=== PATIENT | female | born 1945 | race Caucasian/White ===

== ENCOUNTER 2016-10-31 13:30 | Emergency (ER) | payer MEDICARE ==
[2016-10-31 13:39] VITALS: BP 118/82; PULSE 101; O2SAT 97
--- NOTE | 2016-10-31 13:53 | ERPHSYRPT ---
- History of Present Illness Time Seen by Provider: 10/31/16 13:49 Source: patient Exam Limitations: no limitations Patient Subjective Stated Complaint: pt reports that deb 30 min ago she saw a "ribbon" for deb 30 sec-states she can see spots out of left eye-denies pain Triage Nursing Assessment: pt pink warm et dry-pupils perrl-a & o x 3-no obvious injury to eye Physician History: pt reports that deb 30 min ago she saw a "ribbon" for deb 30 sec-states she can see spots out of left eye-denies pain. Denies any curtain like object passing in front of her eyes Timing/Duration: today Associated Symptoms: other (curly ribbon like floaters in front of her left eye) , No pain, No burning, No itching, No sensitivity to light, No redness, No matting, No eyelid swelling, No foreign body sensation, No decreased vision Allergies/Adverse Reactions: metoclopramide [From Reglan] Allergy (Intermediate, Verified 10/31/16 13:39) penicillin G Allergy (Intermediate, Verified 10/31/16 13:39) erythromycin base Adverse Reaction (Mild, Verified 10/31/16 13:39) Home Medications: Dicyclomine HCl 20 mg [Bentyl 20 mg] 20 mg PO BID 10/31/16 [History] Levothyroxine Sodium 75 Mcg [Synthroid 75 Mcg] 75 mcg PO DAILY 10/31/16 [ History] Montelukast Sodium [Singulair] 10 mg PO DAILY 10/31/16 [History] Potassium Chloride 10 Meq Tab* [Klor Con 10 MEQ] 10 meq PO DAILY 10/31/16 [ History] Valsartan [Diovan] 40 mg PO DAILY 10/31/16 [History] Hx Tetanus, Diphtheria Vaccination/Date Given: No Hx Influenza Vaccination/Date Given: Yes Hx Pneumococcal Vaccination/Date Given: Yes Immunizations Up to Date: No - Review of Systems Constitutional: No Symptoms Eyes: Other (floaters) Ears, Nose, & Throat: No Symptoms Respiratory: No Symptoms Cardiac: No Symptoms Abdominal/Gastrointestinal: No Symptoms Genitourinary Symptoms: No Symptoms Musculoskeletal: No Symptoms Skin: No Symptoms - Past Medical History Pertinent Past Medical History: Yes ENT History: Cataracts Cardiac History: Hypertension Respiratory History: Asthma Endocrine Medical History: Hypothyroidism - Past Surgical History Past Surgical History: Yes Gastrointestinal: Appendectomy, Cholecystectomy Female Surgical History: Hysterectomy - Social History Smoking Status: Never smoker Exposure to second hand smoke: No Drug Use: none Patient Lives Alone: No - Nursing Vital Signs Nursing Vital Signs: Initial Vital Signs Temperature 97.6 F Temperature Source Oral Pulse Rate 101 Respiratory Rate 22 Blood Pressure [Right Arm] 118/82 Pain Intensity 0 - Physical Exam General Appearance: no apparent distress Vision Acuity Degree Evaluation Phase: Corrected Vision Acuity Right Eye: 20/20 Eye Exam: bilateral eye: normal inspection, PERRL, EOMI Ears, Nose, Throat Exam: normal ENT inspection SpO2: 97 Oxygen Delivery: Room Air - Course Nursing assessment & vital signs reviewed: Yes - Progress Progress: improved Counseled pt/family regarding: diagnosis, need for follow-up - Departure Time of Disposition: 13:51 Departure Disposition: Home Clinical Impression: Floaters in visual field Qualifiers: Laterality: left Qualified Code(s): H43.392 - Other vitreous opacities, left eye Condition: Stable Critical Care Time: No Instructions: Eye Floaters Additional Instructions: Please follow the instructions given to you. Please take your medication as prescribed if given. If symptoms recur or get worse, come back to the emergency room if you cannot reach your primary care physician, or call your primary care physician for an appointment. Again if your symptoms get worse, come back to the emergency room. Thanks for visiting emergency room, and let us take care of you.
== END 2016-10-31 14:01 | disposition home or self-care (01) ==
LOC: ED 13:30
DX: H43.392 Other vitreous opacities, left eye (principal)
CPT/HCPCS: 99281; 99282

== ENCOUNTER 2018-02-05 11:15 | Emergency (ER) | payer MEDICARE ==
[2018-02-05 11:22] VITALS: O2SAT 96
[2018-02-05] MEDS ORDERED: Adacel Vial IM ONE ×2 (11:30→11:36)
[2018-02-05] MEDS ORDERED: BACIGUENT PACKET ONE (11:36)
[2018-02-05] MEDS ORDERED: BACIGUENT PACKET TP ONE (11:38)
[2018-02-05 11:45] VITALS: BP 138/84; PULSE 80
--- NOTE | 2018-02-05 11:45 | ERPHSYRPT ---
- History of Present Illness Time Seen by Provider: 02/05/18 11:35 Source: patient Exam Limitations: clinical condition Patient Subjective Stated Complaint: pt reports being bitten by a tick on left upper thigh-reports area red Triage Nursing Assessment: pt pink warm and [id number] area noted to upper thigh with no bleeding or abrasions noted Physician History: PATIENT WITH A HISTORY OF HYPERTENSION PULLED A TICK PARTIALLY EMBEDDED IN BACK OF LEFT MID THIGH THIS MORNING. NOTICED SLIGHT REDNESS AROUND SITE, DENIES FEVER, ITCHING OR DRAINAGE. Method of Injury: other (INSECT BITE) Occurred: just prior to arrival Quality: other (NO DISCOMFORT) Severity of Pain-Max: none Severity of Pain-Current: none Lower Extremities Pain: thigh: left Modifying Factors: Improves With: nothing Associated Symptoms: none Allergies/Adverse Reactions: metoclopramide [From Reglan] Allergy (Intermediate, Verified 02/05/18 11:22) penicillin G Allergy (Intermediate, Verified 02/05/18 11:22) erythromycin base Adverse Reaction (Mild, Verified 02/05/18 11:22) Home Medications: Levothyroxine Sodium 75 Mcg [Synthroid 75 Mcg] 75 mcg PO DAILY 10/31/16 [ History] Montelukast Sodium [Singulair] 10 mg PO DAILY 10/31/16 [History] Potassium Chloride 10 Meq Tab* [Klor Con 10 MEQ] 10 meq PO DAILY 10/31/16 [ History] Valsartan [Diovan] 40 mg PO DAILY 10/31/16 [History] Hx Tetanus, Diphtheria Vaccination/Date Given: No Hx Influenza Vaccination/Date Given: Yes Hx Pneumococcal Vaccination/Date Given: Yes Immunizations Up to Date: Yes - Review of Systems Constitutional: No Fever, No Chills Eyes: No Symptoms Ears, Nose, & Throat: No Symptoms Respiratory: No Cough, No Dyspnea Cardiac: No Chest Pain, No Edema, No Syncope Abdominal/Gastrointestinal: No Abdominal Pain, No Nausea, No Vomiting, No Diarrhea Genitourinary Symptoms: No Dysuria Musculoskeletal: Other (INSECT BITE), No Back Pain, No Neck Pain Skin: No Rash Neurological: No Dizziness, No Focal Weakness, No Sensory Changes Psychological: No Symptoms Endocrine: No Symptoms All Other Systems: Reviewed and Negative - Past Medical History Pertinent Past Medical History: Yes ENT History: Cataracts Cardiac History: Hypertension Respiratory History: Asthma Endocrine Medical History: Hypothyroidism - Past Surgical History Past Surgical History: Yes Gastrointestinal: Appendectomy, Cholecystectomy Female Surgical History: Hysterectomy - Social History Smoking Status: Never smoker Exposure to second hand smoke: No Drug Use: none Patient Lives Alone: No - Female History Hx Now: No - Nursing Vital Signs Nursing Vital Signs: Initial Vital Signs Temperature 97.4 F 02/05/18 11:19 Pulse Rate 81 02/05/18 11:19 Respiratory Rate 18 02/05/18 11:19 Blood Pressure 150/77 02/05/18 11:19 O2 Sat by Pulse Oximetry 96 02/05/18 11:19 Pain Scale Pain Intensity 0 - Physical Exam General Appearance: alert Legs Exam: left leg: other (THERE IS A 3MM X 3MM SUPERFICIAL ABRASION OVER LEFT MID POSTERIOR THIGH WITH A 1.5CM SURROUNDING ERYTHRMA, NO DRAINAGE NOTED), bilateral leg: non-tender, normal range of motion SpO2: 96 Oxygen Delivery: Room Air Ordered Tests: Active Orders 24 hr Category Date Time Status Wound Care STAT Care 02/05/18 11:30 Active Medication Summary Discontinued Medications Generic Name Dose Route Start Last Admin Trade Name Freq PRN Reason Stop Dose Admin Bacitracin 0.9 gm 02/05/18 11:38 Baciguent Packet TP 02/05/18 11:39 STAT ONE Bacitracin Confirm 02/05/18 11:36 Baciguent Packet Administered 02/05/18 11:37 Dose 1 gm .ROUTE .STK-MED ONE Diphtheria/Tetanus/Acell Pertussis 0.5 ml 02/05/18 11:30 Adacel Vial IM 02/05/18 11:31 .ONCE ONE Diphtheria/Tetanus/Acell Pertussis Confirm 02/05/18 11:36 Adacel Vial Administered 02/05/18 11:37 Dose 0.5 ml IM .STK-MED ONE - Progress Progress Note: 02/05/18 11:48 HIBICLENS SCRUB TO WOUND Counseled pt/family regarding: diagnosis, need for follow-up - Departure Time of Disposition: 12:00 Departure Disposition: Home Clinical Impression: TICK BITE LEFT THIGH Condition: Stable Critical Care Time: No Referrals: SIL COLVIN [Primary Care Provider] - Additional Instructions: CLEANSE WOUND WITH SOAP AND WATER 2-3 TIMES DAILY FOR 1 WEEK. ANTIBIOTIC OMNICEF 300MG TWICE DAILY FOR 2 WEEKS. FOLLOWUP WITH YOUR PRIMARY CARE PROVIDER FOR LYME TITER IN 4 WEEKS. WATCH FOR SIGNS OF INFECTION REDNESS, SWELLING OR DRAINAGE. Prescriptions: Cefdinir [Omnicef 300 mg] 300 mg PO BID #28 capsule
== END 2018-02-05 12:03 | disposition home or self-care (01) ==
LOC: ED 11:15
DX: S70.362A Insect bite (nonvenomous), left thigh, initial encounter (principal); W57.XXXA Bitten or stung by nonvenomous insect and other nonvenomous arthropods, initial encounter
CPT/HCPCS: 90471; 90715; 99284; A9270-GY

== ENCOUNTER 2021-12-23 11:25 | Observation (INO) | payer MEDICARE ==
--- NOTE | 2021-12-23 12:30 | XRAY ---
Indication: Right neck pain. Comparison: August 07, 2018. Portable chest remains clear. Heart not enlarged for AP portable technique. Bony thorax intact again with mild osteopenia and degenerative changes. No new/acute findings.
[2021-12-23 12:32] LABS: Absolute Neutrophil Ct (ANC) 4.14 (1.4-6.9); Basophil (Absolute #) 0.02 (0-0.4); Eosinophil % 2.8 % (0.00-5.0); Hematocrit 45.4 % (35-47); Hemoglobin 14.6 gm/dl (12.0-16.0); Lymphocyte (Absolute #) 2.11 (1.0-4.6); Lymphocytes % 29.5 % (24.0-44.0); Mean Cell Volume 89.9 fl (78-100); Mean Corpuscular Hemoglobin 28.9 pg (26-32); Mean Corpuscular Hgb Concent. 32.2 g/dl (32-36); Mean Platelet Volume 11.1 fl (7.5-11.0); Monocyte (Absolute #) 0.69 (0.0-1.3); Monocytes % 9.6 % (0.0-12.0); Neutrophil % 57.8 % (36.0-66.0); Platelet Count 252 K/mm3 (150-450); Red Blood Count 5.05 M/mm3 (4.1-5.4); Red Cell Distribution Width 14.4 % (11.5-14.0); White Blood Count 7.2 K/mm3 (4.0-10.5)
[2021-12-23 12:44] LABS: INR 1.04 (0.8-3.0); PROTIME 12.3 SECONDS (9.4-12.5)
[2021-12-23 12:46] LABS: PTT 39.4 SECONDS (25.1-36.5)
[2021-12-23 12:49] LABS: ALBUMIN 3.8 g/dL (3.5-5.0); ALKALINE PHOSPHATASE 76 U/L (38-126); ANION GAP 13.5 MEQ/L (5-15); BLOOD UREA NITROGEN 11 mg/dL (7-17); CHLORIDE 108 mmol/L (98-107); Calcium 9.7 mg/dL (8.4-10.2); Carbon Dioxide 22 mmol/L (22-30); Creatinine 1 0.61 mg/dL (0.52-1.04); EST GLOMERULAR FILTRATION RATE > 60.0 ML/MIN; Glucose 82 mg/dL (74-106); Potassium 4.5 mmol/L (3.5-5.1); SGOT/AST 22 U/L (14-36); SGPT/ALT 13 U/L (0-35); SODIUM 139 mmol/L (137-145); Total Protein 6.3 g/dL (6.3-8.2)
[2021-12-23 13:05] LABS: NT PRO BNP 158 pg/mL (0-1800)
--- NOTE | 2021-12-23 14:06 | ERPHSYRPT ---
- History of Present Illness Time Seen by Provider: 12/23/21 11:40 Historian: patient Exam Limitations: no limitations Patient Subjective Stated Complaint: Patient was in the hospital's RT department to receive a 48 hour holter monitor when she began c/o "chest pain." RT brought patient to ED and patient stated that she didn't have chest pain but that she had right shoulder pain. When patient was brought back to ED, she denied chest pain or right shoulder pain. Patient c/o "heart palpitation" to triage nurse. Patient states that she does not have a frog catcher. She was at the hospital per her primary care givers orders for the holter monitor due to Covid Pneumonia in September 2021 and the c/o heart palpitations for the past week. Triage Nursing Assessment: Patient arrived to ED ambulating per self with a steady gait. No SOB noted. Sating well on room air. She is alert and oriented and answering questions appropriately. Patient is very talkative. Able to HEMPHILL WNL. Physician History: 76 years old female with history of hypothyroidism, hypertension, intermittent palpitations for quite some time presented in the ER with chief complaint of chest pain. Patient was apparently at respiratory therapy to cone picker her Holter monitor when she complained there of having chest pain. Patient reports she was having right shoulder and upper chest pain before she came here and took Tylenol and started to improve and has minimal discomfort with dull aching sensation which is improving but still have palpitations/skipping beats. Patient reports this has been going on since she had a COVID-19 infection. Denies any difficulty breathing. Does not want anything for pain. Timing/Duration: today, constant, resolved prior to arrival, gradual onset, improved Activities at Onset: rest Quality: aching Location: shoulder Chest Pain Radiation: no radiation Severity of Pain-Max: moderate Severity of Pain-Current: none Modifying Factors: Improves With: nothing Associated Symptoms: palpitations Prior Chest Pain/Cardiac Workup: no prior chest pain Nitro Today/Relief: no nitro taken today Aspirin Treatment Today: no aspirin today Allergies/Adverse Reactions: metoclopramide [From Reglan] Allergy (Intermediate, Verified 02/05/18 11:22) penicillin G Allergy (Intermediate, Verified 02/05/18 11:22) doxycycline Allergy (Verified 12/23/21 11:31) erythromycin base Adverse Reaction (Mild, Verified 02/05/18 11:22) Home Medications: Montelukast Sodium [Singulair] 10 mg PO DAILY 10/31/16 [History] Potassium Chloride 10 Meq Tab* [Klor Con 10 MEQ] 10 meq PO DAILY 10/31/16 [History] Allopurinol 100 mg [Zyloprim 100 mg] 1 tab PO DAILY 12/23/21 [History] Carvedilol 12.5 mg [Coreg 12.5 mg] 1 tab PO BID 12/23/21 [History] Levothyroxine Sodium 75 Mcg [Synthroid 75 Mcg] 37.5 mcg PO UD 12/23/21 [History] Lisinopril 10 mg [Zestril 10 MG] 1 tab PO DAILY 12/23/21 [History] Hx Tetanus, Diphtheria Vaccination/Date Given: No (NOT SURE ABOUT TETANUS) Hx Influenza Vaccination/Date Given: No Hx Pneumococcal Vaccination/Date Given: Yes (DUE FOR ONE NOW) Immunizations Up to Date: Yes Travel Risk - International Travel Have you traveled outside of the country in past 3 weeks: No - Coronavirus Screening Are you exhibiting any of the following symptoms?: No Close contact with a COVID-19 positive Pt in past 14-21 Days: No - Vaccine Status Have you recieved a Covid-19 vaccination: No - Review of Systems Constitutional: No Symptoms Eyes: No Symptoms Ears, Nose, & Throat: No Symptoms Respiratory: No Symptoms Cardiac: Chest Pain, Palpitations Abdominal/Gastrointestinal: No Symptoms Genitourinary Symptoms: No Symptoms Musculoskeletal: Arthralgias Skin: No Symptoms Neurological: No Symptoms Psychological: No Symptoms Endocrine: No Symptoms Hematologic/Lymphatic: No Symptoms Immunological/Allergic: No Symptoms - Past Medical History Pertinent Past Medical History: Yes Neurological History: No Pertinent History ENT History: Cataracts Cardiac History: Hypertension Respiratory History: Asthma, Sleep Apnea Endocrine Medical History: Hypothyroidism Musculoskeletal History: Fractures, Osteoarthritis GI Medical History: No Pertinent History History: No Pertinent History Psycho-Social History: No Pertinent History Female Reproductive Disorders: No Pertinent History Other Medical History: GOUT, R BUNDLE BRANCH BLOCK, STATES "ENLARGED HEART ON ECHO IN NOVEMBER 2021" - Past Surgical History Past Surgical History: Yes Neuro Surgical History: No Pertinent History Cardiac: Cardiac Catheterization Respiratory: No Pertinent History Gastrointestinal: Appendectomy, Cholecystectomy Genitourinary: No Pertinent History Musculoskeletal: No Pertinent History Female Surgical History: Hysterectomy - Social History Smoking Status: Never smoker Exposure to second hand smoke: No Drug Use: none Patient Lives Alone: Yes - Nursing Vital Signs Nursing Vital Signs: Initial Vital Signs Pulse Rate 70 12/23/21 11:34 Respiratory Rate 25 H 12/23/21 11:34 Blood Pressure 199/109 12/23/21 11:34 O2 Sat by Pulse Oximetry 98 12/23/21 11:34 Pain Scale Pain Intensity 0 - Physical Exam General Appearance: no apparent distress, alert Eye Exam: PERRL/EOMI, eyes nml inspection Ears, Nose, Throat Exam: normal ENT inspection, pharynx normal Neck Exam: normal inspection, non-tender, supple, full range of motion Respiratory Exam: normal breath sounds, lungs clear Cardiovascular Exam: regular rate/rhythm, normal heart sounds Gastrointestinal/Abdomen Exam: soft, No tenderness Back Exam: normal inspection, normal range of motion Extremity Exam: normal inspection, normal range of motion Neurologic Exam: alert, oriented x 3, cooperative, record keeper II-XII nml as tested Skin Exam: normal color SpO2 Interpretation: normal SpO2: 96 O2 Delivery: Room Air - Course EKG Interpreted by Me: RATE ([id number]), Sinus Rhythm, NORMAL AXIS, Right Bundle Branch Block, Non-specific ST Changes Ordered Tests: Active Orders 24 hr Category Date Time Status CBC W DIFF AM.LAB Lab 12/24/21 00:20 Completed CMP AM.LAB Lab 12/24/21 00:20 Completed TROPONIN Q3H Lab 12/23/21 22:00 Completed TROPONIN Q3H Lab 12/24/21 00:20 Completed Medication Summary Discontinued Medications Generic Name Dose Route Start Last Admin Trade Name Freq PRN Reason Stop Dose Admin Acetaminophen 650 mg 12/23/21 16:32 Acetaminophen 325 Mg Tablet PO 01/22/22 16:31 Q4H PRN PRN PAIN AND/OR FEVER Albuterol/Ipratropium 3 ml 12/23/21 16:32 Ipratropium/Albuterol Sulfate 3 Ml Ampul.Neb IH 01/22/22 16:31 Q4HPRN PRN SHORTNESS OF BREATH/WHEEZING Allopurinol 100 mg 12/24/21 10:00 12/24/21 10:51 Allopurinol 100 Mg Tablet PO 01/23/22 09:59 100 mg DAILY JENNI Administration Carvedilol 12.5 mg 12/23/21 22:00 12/23/21 21:22 Carvedilol 12.5 Mg Tablet PO 12/23/21 22:01 12.5 mg ONCE ONE Administration Carvedilol 12.5 mg 12/24/21 10:00 12/24/21 10:51 Carvedilol 12.5 Mg Tablet PO 01/23/22 09:59 12.5 mg BID JENNI Administration Enoxaparin Sodium 40 mg 12/24/21 10:00 12/24/21 10:52 Enoxaparin Sodium 40 Mg/0.4 Ml Syringe SQ 01/23/22 09:59 40 mg DAILY JENNI Administration Lisinopril 10 mg 12/24/21 10:00 12/24/21 10:51 Lisinopril 10 Mg Tablet PO 01/23/22 09:59 10 mg DAILY JENNI Administration Montelukast Sodium 10 mg 12/24/21 10:00 12/24/21 10:51 Montelukast Sodium 10 Mg Tablet PO 01/23/22 09:59 10 mg DAILY JENNI Administration Morphine Sulfate 2 mg 12/23/21 16:32 Morphine Sulfate 2 Mg/Ml Inj IV 12/28/21 16:31 Q4H PRN PRN PAIN Ondansetron HCl 4 mg 12/23/21 14:59 12/23/21 15:01 Ondansetron Hcl 4 Mg/2 Ml Vial IV 12/23/21 15:00 4 mg STAT ONE Administration Ondansetron HCl Confirm 12/23/21 14:59 Ondansetron Hcl 4 Mg/2 Ml Vial Administered 12/23/21 15:00 Dose 4 mg .ROUTE .STK-MED ONE Ondansetron HCl 4 mg 12/23/21 16:32 Ondansetron Hcl 4 Mg/2 Ml Vial IV 01/22/22 16:31 Q6H PRN PRN NAUSEA/VOMITING Pantoprazole Sodium 40 mg 12/24/21 10:00 12/24/21 10:51 Pantoprazole 40 Mg Vial IV 01/23/22 09:59 Not Given Q24H10 JENNI Wixella Inhaler 1 each 12/23/21 19:00 12/24/21 07:39 IH 01/22/22 18:59 1 each BIDRT JENNI Administration Potassium Chloride 10 meq 12/24/21 10:00 12/24/21 10:51 Potassium Chloride 10 Meq Tablet PO 01/23/22 09:59 10 meq DAILY JENNI Administration Lab/Rad Data: Laboratory Result Diagrams 12/23/21 12:27 12/23/21 12:27 Laboratory Results 12/23/21 12/23/21 12/23/21 Range/Units 15:45 13:34 12:27 WBC (4.0-10.5) K/mm3 RBC (4.1-5.4) M/mm3 Hgb (12.0-16.0) gm/dl Hct (35-47) % MCV (78-100) fl MCH (26-32) pg MCHC (32-36) g/dl RDW (11.5-14.0) % Plt Count (150-450) K/mm3 MPV (7.5-11.0) fl Gran % (36.0-66.0) % Eos # (Auto) (0-0.5) Absolute Lymphs (auto) (1.0-4.6) Absolute Monos (auto) (0.0-1.3) Lymphocytes % (24.0-44.0) % Monocytes % (0.0-12.0) % Eosinophils % (0.00-5.0) % Basophils % (0.0-0.4) % Absolute Granulocytes (1.4-6.9) Basophils # (0-0.4) PT (9.4-12.5) SECONDS INR (0.8-3.0) APTT (25.1-36.5) SECONDS D-Dimer 923 H* (215-500) ng/mL Sodium (137-145) mmol/L Potassium (3.5-5.1) mmol/L Chloride (98-107) mmol/L Carbon Dioxide (22-30) mmol/L Anion Gap (5-15) MEQ/L BUN (7-17) mg/dL Creatinine (0.52-1.04) mg/dL Estimated GFR ML/MIN Glucose (74-106) mg/dL Calcium (8.4-10.2) mg/dL Total Bilirubin (0.2-1.3) mg/dL AST (14-36) U/L ALT (0-35) U/L Alkaline Phosphatase (38-126) U/L Troponin I < 0.012 (0.000-0.034) ng/mL NT-Pro-B Natriuret Pep (0-1800) pg/mL Serum Total Protein (6.3-8.2) g/dL Albumin (3.5-5.0) g/dL TSH 3rd Generation 0.333 L (0.47-4.68) mIU/L 12/23/21 12/23/21 12/23/21 Range/Units 12:27 12:27 12:27 WBC (4.0-10.5) K/mm3 RBC (4.1-5.4) M/mm3 Hgb (12.0-16.0) gm/dl Hct (35-47) % MCV (78-100) fl MCH (26-32) pg MCHC (32-36) g/dl RDW (11.5-14.0) % Plt Count (150-450) K/mm3 MPV (7.5-11.0) fl Gran % (36.0-66.0) % Eos # (Auto) (0-0.5) Absolute Lymphs (auto) (1.0-4.6) Absolute Monos (auto) (0.0-1.3) Lymphocytes % (24.0-44.0) % Monocytes % (0.0-12.0) % Eosinophils % (0.00-5.0) % Basophils % (0.0-0.4) % Absolute Granulocytes (1.4-6.9) Basophils # (0-0.4) PT 12.3 (9.4-12.5) SECONDS INR 1.04 (0.8-3.0) APTT 39.4 H (25.1-36.5) SECONDS D-Dimer (215-500) ng/mL Sodium 139 (137-145) mmol/L Potassium 4.5 (3.5-5.1) mmol/L Chloride 108 H (98-107) mmol/L Carbon Dioxide 22 (22-30) mmol/L Anion Gap 13.5 (5-15) MEQ/L BUN 11 (7-17) mg/dL Creatinine 0.61 (0.52-1.04) mg/dL Estimated GFR > 60.0 ML/MIN Glucose 82 (74-106) mg/dL Calcium 9.7 (8.4-10.2) mg/dL Total Bilirubin 0.70 (0.2-1.3) mg/dL AST 22 (14-36) U/L ALT 13 (0-35) U/L Alkaline Phosphatase 76 (38-126) U/L Troponin I < 0.012 (0.000-0.034) ng/mL NT-Pro-B Natriuret Pep 158 (0-1800) pg/mL Serum Total Protein 6.3 (6.3-8.2) g/dL Albumin 3.8 (3.5-5.0) g/dL TSH 3rd Generation (0.47-4.68) mIU/L 12/23/21 Range/Units 12:27 WBC 7.2 (4.0-10.5) K/mm3 RBC 5.05 (4.1-5.4) M/mm3 Hgb 14.6 (12.0-16.0) gm/dl Hct 45.4 (35-47) % MCV 89.9 (78-100) fl MCH 28.9 (26-32) pg MCHC 32.2 (32-36) g/dl RDW 14.4 H (11.5-14.0) % Plt Count 252 (150-450) K/mm3 MPV 11.1 H (7.5-11.0) fl Gran % 57.8 (36.0-66.0) % Eos # (Auto) 0.20 (0-0.5) Absolute Lymphs (auto) 2.11 (1.0-4.6) Absolute Monos (auto) 0.69 (0.0-1.3) Lymphocytes % 29.5 (24.0-44.0) % Monocytes % 9.6 (0.0-12.0) % Eosinophils % 2.8 (0.00-5.0) % Basophils % 0.3 (0.0-0.4) % Absolute Granulocytes 4.14 (1.4-6.9) Basophils # 0.02 (0-0.4) PT (9.4-12.5) SECONDS INR (0.8-3.0) APTT (25.1-36.5) SECONDS D-Dimer (215-500) ng/mL Sodium (137-145) mmol/L Potassium (3.5-5.1) mmol/L Chloride (98-107) mmol/L Carbon Dioxide (22-30) mmol/L Anion Gap (5-15) MEQ/L BUN (7-17) mg/dL Creatinine (0.52-1.04) mg/dL Estimated GFR ML/MIN Glucose (74-106) mg/dL Calcium (8.4-10.2) mg/dL Total Bilirubin (0.2-1.3) mg/dL AST (14-36) U/L ALT (0-35) U/L Alkaline Phosphatase (38-126) U/L Troponin I (0.000-0.034) ng/mL NT-Pro-B Natriuret Pep (0-1800) pg/mL Serum Total Protein (6.3-8.2) g/dL Albumin (3.5-5.0) g/dL TSH 3rd Generation (0.47-4.68) mIU/L - Progress Progress: improved Air Movement: good Progress Note: 12/23/21 14:04 76 years old is evaluated for chest pain/palpitations. EKG did not show any acute ST elevation but patient is throwing a lot of PACs on the monitor. Has negative initial troponin. D-dimer is mildly elevated and CTA is pending. Chest x-ray negative for any acute cardiopulmonary findings. Has TSH of 0.33 which could be the reason for her palpitations. Discussed with her primary care Dr. Alfaro, reviewed history and current work-up, patient is being admitted for observation for rule out as she does not have any recent cardiac work-up done. Blood Culture(s) Obtained: No Antibiotics given: No Discussed with : Shashi Will see patient in: hospital (observation) Counseled pt/family regarding: lab results, diagnosis, rad results - Departure Departure Disposition: Observation Clinical Impression: Chest pain, rule out acute myocardial infarction, Palpitations Condition: Good Critical Care Time: No
[2021-12-23] MEDS ORDERED: Zofran 4 MG/2 ML VIAL IV ONE (14:59)
[2021-12-23] MEDS ORDERED: Zofran 4 MG/2 ML VIAL ONE (14:59)
--- NOTE | 2021-12-23 15:31 | XRAY ---
Indication: Elevated d-dimer. Multiple contiguous axial images obtained through the chest using 100 cc Isovue 370 contrast and PE protocol. Progress comparison: None Good opacification of the pulmonary arteries to include the lobar and segmental branches. No pulmonary embolus. Heart is borderline enlarged. Aorta is normal in course and caliber. Tiny subcarinal and left infrahilar calcified node. No pathologic mediastinal/hilar lymphadenopathy. Small hiatal hernia. Lungs demonstrates mild bilateral dependent atelectasis and mild bibasilar fibrosis/scarring. No suspicious pulmonary mass, infiltrate, effusion, or pneumothorax. Bony thorax intact with minimal degenerative changes throughout the spine. Limited upper abdomen demonstrates mild fatty liver and cholecystectomy clips. Impression: 1. Negative pulmonary embolus. No acute cardiopulmonary abnormalities. 2. Incidental small hiatal hernia and fatty liver.
[2021-12-23] MEDS ORDERED: MORPHINE SULFATE 2 MG INJ IV PRN (16:32)
[2021-12-23] MEDS ORDERED: DUONEB 0.5-3 MG/3 ml Neb IH PRN (16:32)
[2021-12-23] MEDS ORDERED: Zofran 4 MG/2 ML VIAL IV PRN (16:32)
[2021-12-23] MEDS ORDERED: TYLENOL 325 MG PO PRN (16:32)
[2021-12-23] MEDS ORDERED: PATIENT OWN MEDICATION IH SCH (19:00)
[2021-12-23] MEDS ORDERED: COREG 12.5 MG PO ONE (22:00)
[2021-12-24 00:40] LABS: Absolute Neutrophil Ct (ANC) 3.21 (1.4-6.9); Basophil (Absolute #) 0.03 (0-0.4); Eosinophil % 3.5 % (0.00-5.0); Eosinophil (Absolute #) 0.21 (0-0.5); Hematocrit 42.5 % (35-47); Hemoglobin 13.7 gm/dl (12.0-16.0); Lymphocyte (Absolute #) 1.99 (1.0-4.6); Mean Cell Volume 90.4 fl (78-100); Mean Corpuscular Hemoglobin 29.1 pg (26-32); Mean Corpuscular Hgb Concent. 32.2 g/dl (32-36); Mean Platelet Volume 10.3 fl (7.5-11.0); Monocyte (Absolute #) 0.59 (0.0-1.3); Monocytes % 9.8 % (0.0-12.0); Neutrophil % 53.2 % (36.0-66.0); Platelet Count 235 K/mm3 (150-450); Red Cell Distribution Width 14.2 % (11.5-14.0)
[2021-12-24 03:22] LABS: ALBUMIN 3.4 g/dL (3.5-5.0); ALKALINE PHOSPHATASE 69 U/L (38-126); ANION GAP 9.2 MEQ/L (5-15); BLOOD UREA NITROGEN 14 mg/dL (7-17); CHLORIDE 105 mmol/L (98-107); Calcium 9.2 mg/dL (8.4-10.2); Carbon Dioxide 27 mmol/L (22-30); Creatinine 1 0.75 mg/dL (0.52-1.04); EST GLOMERULAR FILTRATION RATE > 60.0 ML/MIN; Glucose 93 mg/dL (74-106); SGOT/AST 26 U/L (14-36); SGPT/ALT 13 U/L (0-35); SODIUM 137 mmol/L (137-145); Total Protein 5.9 g/dL (6.3-8.2)
[2021-12-24] MEDS ORDERED: Singulair 10 MG PO SCH (10:00)
[2021-12-24] MEDS ORDERED: ZYLOPRIM 100 MG PO SCH (10:00)
[2021-12-24] MEDS ORDERED: PROTONIX 40 MG IV IV SCH (10:00)
[2021-12-24] MEDS ORDERED: ENOXAPARIN SODIUM SQ SCH (10:00)
[2021-12-24] MEDS ORDERED: COREG 12.5 MG PO SCH (10:00)
[2021-12-24] MEDS ORDERED: Zestril 10 MG PO SCH (10:00)
[2021-12-24] MEDS ORDERED: Klor Con 10 MEQ PO SCH (10:00)
[2021-12-24 12:24] VITALS: BP 139/75; PULSE 70
--- NOTE | 2021-12-24 12:58 | PCM.SSS ---
History of Present Illness - Chief Complaint Chief Complaint: Chest pain rule out NV History of Present Illness: is a 76 year old female pt of mine with hypothyroidism and HTN who was at the hospital to seed cone pick[employer] a monitor and she let them know she was having R sided trapzius pain and upper chest pain with heart palpitations. She was directed to ER. Her troponins were negative but d-dimer was elevated; CT chest neg for PE. Her pain improved and resolved after admission. Troponins continued to be negative. TSH was low. This morning she feels better. Had not had any a.m. meds yet. Notes that palpitations started yesterday after taking her morning medicines. - Review of Systems Cardiac: Chest Pain, Edema (LE and hands), Palpitations Abdominal/Gastrointestinal: Appetite Changes All Other Systems: Reviewed and Negative Medications & Allergies Home Medications: Home Medication List Montelukast Sodium [Singulair] 10 mg PO DAILY 10/31/16 [History Confirmed 12/23/21] Potassium Chloride 10 Meq Tab* [Klor Con 10 MEQ] 10 meq PO DAILY 10/31/16 [History Confirmed 12/23/21] Allopurinol 100 mg [Zyloprim 100 mg] 1 tab PO DAILY 12/23/21 [History Confirmed 12/23/21] Carvedilol 12.5 mg [Coreg 12.5 mg] 1 tab PO BID 12/23/21 [History Confirmed 12/23/21] Levothyroxine Sodium 75 Mcg [Synthroid 75 Mcg] 37.5 mcg PO UD 12/23/21 [History Confirmed 12/23/21] Lisinopril 10 mg [Zestril 10 MG] 1 tab PO DAILY 12/23/21 [History Confirmed 12/23/21] Allergies/Adverse Reactions: Allergies Allergy/AdvReac Type Severity Reaction Status Date / Time metoclopramide [From Reglan] Allergy Intermediate Verified 02/05/18 11:22 penicillin G Allergy Intermediate Verified 02/05/18 11:22 doxycycline Allergy Verified 12/23/21 11:31 erythromycin base AdvReac Mild Verified 02/05/18 11:22 - Past Medical History Past Medical History: Yes Neurological History: No Pertinent History ENT History: Cataracts Cardiac History: Hypertension Respiratory History: Asthma, Sleep Apnea Endocrine Medical History: Hypothyroidism Musculoskelatal History: Fractures, Osteoarthritis GI Medical History: No Pertinent History History: No Pertinent History Pyscho-Social History: No Pertinent History Reproductive Disorders: No Pertinent History Comment: GOUT, R BUNDLE BRANCH BLOCK, STATES "ENLARGED HEART ON ECHO IN NOVEMBER 2021", SHINGLES - Past Surgical History Past Surgical History: Yes Neuro Surgical History: No Pertinent History Cardiac History: Cardiac Catheterization Respiratory Surgery: No Pertinent History GI Surgical History: Appendectomy, Cholecystectomy Genitourinary Surgical Hx: No Pertinent History Musculskeletal Surgical Hx: No Pertinent History Female Surgical History: Hysterectomy Other Surgical History: BREAST BIOPSIES - Social History Smoking Status: Never smoker Exposure to second hand smoke: No Alcohol: None Drug Use: none - Physical Exam Vital Signs: Vital Signs - 24 hr Temp Pulse Resp BP BP Pulse Ox 12/24/21 12:00 97.1 F 70 18 139/75 97 12/24/21 08:00 97.8 F 72 18 133/82 91 L 12/24/21 07:00 74 18 95 12/24/21 04:00 98.1 F 70 18 126/74 96 12/23/21 23:55 98.1 F 69 18 116/83 96 12/23/21 20:00 98.0 F 72 18 141/83 97 12/23/21 19:39 74 18 90 L 12/23/21 17:09 73 16 97 12/23/21 16:09 71 139/84 99 12/23/21 15:22 88 16 164/76 94 L 12/23/21 14:06 96 12/23/21 14:00 71 22 167/91 96 12/23/21 13:27 68 17 154/81 96 General Appearance: no apparent distress, alert Neurologic Exam: oriented x 3, cooperative, normal mood/affect Eye Exam: eyes nml inspection Ears, Nose, Throat Exam: moist mucous membranes Neck Exam: normal inspection, non-tender, No mass, No lymphadenopathy, No thyromegaly Respiratory Exam: normal breath sounds, lungs clear, No crackles/rales, No rhonchi, No wheezing Cardiovascular Exam: regular rate/rhythm, normal heart sounds, No murmur Gastrointestinal/Abdomen Exam: soft, normal bowel sounds, No tenderness, No distention, No mass, No guarding, No rebound Back Exam: normal inspection, No CVA tenderness, No rash Extremity Exam: swelling (trace pretibial edema bilat) Skin Exam: normal color, warm, dry, No rash Results - Labs Lab/Micro Results: Lab Results-Last 24 Hours 12/23/21 12/23/21 12/23/21 Range/Units 12:27 12:27 12:27 WBC (4.0-10.5) K/mm3 RBC (4.1-5.4) M/mm3 Hgb (12.0-16.0) gm/dl Hct (35-47) % MCV (78-100) fl MCH (26-32) pg MCHC (32-36) g/dl RDW (11.5-14.0) % Plt Count (150-450) K/mm3 MPV (7.5-11.0) fl Gran % (36.0-66.0) % Eos # (Auto) (0-0.5) Absolute Lymphs (auto) (1.0-4.6) Absolute Monos (auto) (0.0-1.3) Lymphocytes % (24.0-44.0) % Monocytes % (0.0-12.0) % Eosinophils % (0.00-5.0) % Basophils % (0.0-0.4) % Absolute Granulocytes (1.4-6.9) Basophils # (0-0.4) PT 12.3 (9.4-12.5) SECONDS INR 1.04 (0.8-3.0) APTT 39.4 H (25.1-36.5) SECONDS D-Dimer (215-500) ng/mL Sodium 139 (137-145) mmol/L Potassium 4.5 (3.5-5.1) mmol/L Chloride 108 H (98-107) mmol/L Carbon Dioxide 22 (22-30) mmol/L Anion Gap 13.5 (5-15) MEQ/L BUN 11 (7-17) mg/dL Creatinine 0.61 (0.52-1.04) mg/dL Estimated GFR > 60.0 ML/MIN Glucose 82 (74-106) mg/dL Calcium 9.7 (8.4-10.2) mg/dL Total Bilirubin 0.70 (0.2-1.3) mg/dL AST 22 (14-36) U/L ALT 13 (0-35) U/L Alkaline Phosphatase 76 (38-126) U/L Troponin I < 0.012 (0.000-0.034) ng/mL NT-Pro-B Natriuret Pep 158 (0-1800) pg/mL Serum Total Protein 6.3 (6.3-8.2) g/dL Albumin 3.8 (3.5-5.0) g/dL TSH 3rd Generation (0.47-4.68) mIU/L 12/23/21 12/23/21 12/23/21 Range/Units 12:27 13:34 15:45 WBC (4.0-10.5) K/mm3 RBC (4.1-5.4) M/mm3 Hgb (12.0-16.0) gm/dl Hct (35-47) % MCV (78-100) fl MCH (26-32) pg MCHC (32-36) g/dl RDW (11.5-14.0) % Plt Count (150-450) K/mm3 MPV (7.5-11.0) fl Gran % (36.0-66.0) % Eos # (Auto) (0-0.5) Absolute Lymphs (auto) (1.0-4.6) Absolute Monos (auto) (0.0-1.3) Lymphocytes % (24.0-44.0) % Monocytes % (0.0-12.0) % Eosinophils % (0.00-5.0) % Basophils % (0.0-0.4) % Absolute Granulocytes (1.4-6.9) Basophils # (0-0.4) PT (9.4-12.5) SECONDS INR (0.8-3.0) APTT (25.1-36.5) SECONDS D-Dimer 923 H* (215-500) ng/mL Sodium (137-145) mmol/L Potassium (3.5-5.1) mmol/L Chloride (98-107) mmol/L Carbon Dioxide (22-30) mmol/L Anion Gap (5-15) MEQ/L BUN (7-17) mg/dL Creatinine (0.52-1.04) mg/dL Estimated GFR ML/MIN Glucose (74-106) mg/dL Calcium (8.4-10.2) mg/dL Total Bilirubin (0.2-1.3) mg/dL AST (14-36) U/L ALT (0-35) U/L Alkaline Phosphatase (38-126) U/L Troponin I < 0.012 (0.000-0.034) ng/mL NT-Pro-B Natriuret Pep (0-1800) pg/mL Serum Total Protein (6.3-8.2) g/dL Albumin (3.5-5.0) g/dL TSH 3rd Generation 0.333 L (0.47-4.68) mIU/L 12/23/21 12/23/21 12/24/21 Range/Units 18:45 22:00 00:20 WBC (4.0-10.5) K/mm3 RBC (4.1-5.4) M/mm3 Hgb (12.0-16.0) gm/dl Hct (35-47) % MCV (78-100) fl MCH (26-32) pg MCHC (32-36) g/dl RDW (11.5-14.0) % Plt Count (150-450) K/mm3 MPV (7.5-11.0) fl Gran % (36.0-66.0) % Eos # (Auto) (0-0.5) Absolute Lymphs (auto) (1.0-4.6) Absolute Monos (auto) (0.0-1.3) Lymphocytes % (24.0-44.0) % Monocytes % (0.0-12.0) % Eosinophils % (0.00-5.0) % Basophils % (0.0-0.4) % Absolute Granulocytes (1.4-6.9) Basophils # (0-0.4) PT (9.4-12.5) SECONDS INR (0.8-3.0) APTT (25.1-36.5) SECONDS D-Dimer (215-500) ng/mL Sodium (137-145) mmol/L Potassium (3.5-5.1) mmol/L Chloride (98-107) mmol/L Carbon Dioxide (22-30) mmol/L Anion Gap (5-15) MEQ/L BUN (7-17) mg/dL Creatinine (0.52-1.04) mg/dL Estimated GFR ML/MIN Glucose (74-106) mg/dL Calcium (8.4-10.2) mg/dL Total Bilirubin (0.2-1.3) mg/dL AST (14-36) U/L ALT (0-35) U/L Alkaline Phosphatase (38-126) U/L Troponin I < 0.012 < 0.012 < 0.012 (0.000-0.034) ng/mL NT-Pro-B Natriuret Pep (0-1800) pg/mL Serum Total Protein (6.3-8.2) g/dL Albumin (3.5-5.0) g/dL TSH 3rd Generation (0.47-4.68) mIU/L 12/24/21 12/24/21 Range/Units 00:20 00:20 WBC 6.0 (4.0-10.5) K/mm3 RBC 4.70 (4.1-5.4) M/mm3 Hgb 13.7 (12.0-16.0) gm/dl Hct 42.5 (35-47) % MCV 90.4 (78-100) fl MCH 29.1 (26-32) pg MCHC 32.2 (32-36) g/dl RDW 14.2 H (11.5-14.0) % Plt Count 235 (150-450) K/mm3 MPV 10.3 (7.5-11.0) fl Gran % 53.2 (36.0-66.0) % Eos # (Auto) 0.21 (0-0.5) Absolute Lymphs (auto) 1.99 (1.0-4.6) Absolute Monos (auto) 0.59 (0.0-1.3) Lymphocytes % 33.0 (24.0-44.0) % Monocytes % 9.8 (0.0-12.0) % Eosinophils % 3.5 (0.00-5.0) % Basophils % 0.5 (0.0-0.4) % Absolute Granulocytes 3.21 (1.4-6.9) Basophils # 0.03 (0-0.4) PT (9.4-12.5) SECONDS INR (0.8-3.0) APTT (25.1-36.5) SECONDS D-Dimer (215-500) ng/mL Sodium 137 (137-145) mmol/L Potassium 4.0 (3.5-5.1) mmol/L Chloride 105 (98-107) mmol/L Carbon Dioxide 27 (22-30) mmol/L Anion Gap 9.2 (5-15) MEQ/L BUN 14 (7-17) mg/dL Creatinine 0.75 (0.52-1.04) mg/dL Estimated GFR > 60.0 ML/MIN Glucose 93 (74-106) mg/dL Calcium 9.2 (8.4-10.2) mg/dL Total Bilirubin 0.60 (0.2-1.3) mg/dL AST 26 (14-36) U/L ALT 13 (0-35) U/L Alkaline Phosphatase 69 (38-126) U/L Troponin I (0.000-0.034) ng/mL NT-Pro-B Natriuret Pep (0-1800) pg/mL Serum Total Protein 5.9 L (6.3-8.2) g/dL Albumin 3.4 L (3.5-5.0) g/dL TSH 3rd Generation (0.47-4.68) mIU/L - Radiology Impressions Radiology Exams & Impressions: Radiology Procedures Category Date Time Status CHEST 1 VIEW (PORTABLE) Stat Exams 12/23/21 12:01 Completed CHEST WITH CONTRAST [CT] Stat Exams 12/23/21 14:00 Completed - Other Procedures and Tests Respiratory Therapy 12/23/21 19:00 Respiratory MDI BID 12/23/21 21:00 BiPap/CPAP ROUTINE 12/24/21 07:00 Respiratory Therapy Assessment DAILY Assessment/Plan (1) Chest pain, rule out acute myocardial infarction Current Visit: Yes Status: Acute Assessment & Plan: She has ruled out for NV. Etiology of chest pain would include iatrogenic hyperthyroidism or musculoskeletal. Would like for her to discuss with endocrinology on Tuesday. She will see me Tuesday and will discuss possible referral to cardiologists that come to [facility] first visit in [place]). Will go ahead with OP stress test. Code(s): R07.9 - CHEST PAIN, UNSPECIFIED (2) Palpitations Current Visit: Yes Status: Resolved Code(s): R00.2 - PALPITATIONS (3) Hypertension Current Visit: Yes Status: Chronic Qualifiers: Hypertension type: primary hypertension Qualified Code(s): I10 - Essential (primary) hypertension Assessment & Plan: BP quite high when she first came to ER, but has been normal (120s systolic) this morning. Discussed; will hold off on any med changes for now. Code(s): I10 - ESSENTIAL (PRIMARY) HYPERTENSION (4) Hypothyroid Current Visit: Yes Status: Chronic Qualifiers: Hypothyroidism type: acquired Qualified Code(s): E03.9 - Hypothyroidism, unspecified Assessment & Plan: Hold the levothyroxine for today; start at 1/2 dose tomorrow through Tuesday. See tours hostess on Tuesday. Code(s): E03.9 - HYPOTHYROIDISM, UNSPECIFIED Hospital Summary - Hospital Course Hospital Course: Pt is 76 yo female pt of mine with hypothyroidism who was admitted through ER with chest pain and palpitations. NV was ruled out. D-dimer was elevated but there was no PE. Her pain improved and she was not having palpitations in the morning. Her TSH was low, so her levothyroxine was held today and she will be seeing endocrinology on Tuesday (in 4d). - Vitals & Intake/Output Vital Signs: Vital Signs Temperature 97.1 F 12/24/21 12:00 Pulse Rate 70 12/24/21 12:00 Respiratory Rate 18 12/24/21 12:00 Blood Pressure 139/75 12/24/21 12:00 O2 Sat by Pulse Oximetry 97 12/24/21 12:00 Intake & Output: Intake & Output 12/22/21 12/23/21 12/24/21 12/25/21 11:59 11:59 11:59 11:59 Intake Total 1500 Balance 1500 Weight 104.5 kg 104.3 kg - Lab Result Diagrams: 12/24/21 00:20 12/24/21 00:20 Lab Results-Last 24 Hrs: Lab Results-Last 24 Hours 12/23/21 12/23/21 12/23/21 Range/Units 12:27 12:27 12:27 WBC (4.0-10.5) K/mm3 RBC (4.1-5.4) M/mm3 Hgb (12.0-16.0) gm/dl Hct (35-47) % MCV (78-100) fl MCH (26-32) pg MCHC (32-36) g/dl RDW (11.5-14.0) % Plt Count (150-450) K/mm3 MPV (7.5-11.0) fl Gran % (36.0-66.0) % Eos # (Auto) (0-0.5) Absolute Lymphs (auto) (1.0-4.6) Absolute Monos (auto) (0.0-1.3) Lymphocytes % (24.0-44.0) % Monocytes % (0.0-12.0) % Eosinophils % (0.00-5.0) % Basophils % (0.0-0.4) % Absolute Granulocytes (1.4-6.9) Basophils # (0-0.4) PT 12.3 (9.4-12.5) SECONDS INR 1.04 (0.8-3.0) APTT 39.4 H (25.1-36.5) SECONDS D-Dimer (215-500) ng/mL Sodium 139 (137-145) mmol/L Potassium 4.5 (3.5-5.1) mmol/L Chloride 108 H (98-107) mmol/L Carbon Dioxide 22 (22-30) mmol/L Anion Gap 13.5 (5-15) MEQ/L BUN 11 (7-17) mg/dL Creatinine 0.61 (0.52-1.04) mg/dL Estimated GFR > 60.0 ML/MIN Glucose 82 (74-106) mg/dL Calcium 9.7 (8.4-10.2) mg/dL Total Bilirubin 0.70 (0.2-1.3) mg/dL AST 22 (14-36) U/L ALT 13 (0-35) U/L Alkaline Phosphatase 76 (38-126) U/L Troponin I < 0.012 (0.000-0.034) ng/mL NT-Pro-B Natriuret Pep 158 (0-1800) pg/mL Serum Total Protein 6.3 (6.3-8.2) g/dL Albumin 3.8 (3.5-5.0) g/dL TSH 3rd Generation (0.47-4.68) mIU/L 12/23/21 12/23/21 12/23/21 Range/Units 12:27 13:34 15:45 WBC (4.0-10.5) K/mm3 RBC (4.1-5.4) M/mm3 Hgb (12.0-16.0) gm/dl Hct (35-47) % MCV (78-100) fl MCH (26-32) pg MCHC (32-36) g/dl RDW (11.5-14.0) % Plt Count (150-450) K/mm3 MPV (7.5-11.0) fl Gran % (36.0-66.0) % Eos # (Auto) (0-0.5) Absolute Lymphs (auto) (1.0-4.6) Absolute Monos (auto) (0.0-1.3) Lymphocytes % (24.0-44.0) % Monocytes % (0.0-12.0) % Eosinophils % (0.00-5.0) % Basophils % (0.0-0.4) % Absolute Granulocytes (1.4-6.9) Basophils # (0-0.4) PT (9.4-12.5) SECONDS INR (0.8-3.0) APTT (25.1-36.5) SECONDS D-Dimer 923 H* (215-500) ng/mL Sodium (137-145) mmol/L Potassium (3.5-5.1) mmol/L Chloride (98-107) mmol/L Carbon Dioxide (22-30) mmol/L Anion Gap (5-15) MEQ/L BUN (7-17) mg/dL Creatinine (0.52-1.04) mg/dL Estimated GFR ML/MIN Glucose (74-106) mg/dL Calcium (8.4-10.2) mg/dL Total Bilirubin (0.2-1.3) mg/dL AST (14-36) U/L ALT (0-35) U/L Alkaline Phosphatase (38-126) U/L Troponin I < 0.012 (0.000-0.034) ng/mL NT-Pro-B Natriuret Pep (0-1800) pg/mL Serum Total Protein (6.3-8.2) g/dL Albumin (3.5-5.0) g/dL TSH 3rd Generation 0.333 L (0.47-4.68) mIU/L 12/23/21 12/23/2122 Range/Units 18:45 22:00 00:20 WBC (4.0-10.5) K/mm3 RBC (4.1-5.4) M/mm3 Hgb (12.0-16.0) gm/dl Hct (35-47) % MCV (78-100) fl MCH (26-32) pg MCHC (32-36) g/dl RDW (11.5-14.0) % Plt Count (150-450) K/mm3 MPV (7.5-11.0) fl Gran % (36.0-66.0) % Eos # (Auto) (0-0.5) Absolute Lymphs (auto) (1.0-4.6) Absolute Monos (auto) (0.0-1.3) Lymphocytes % (24.0-44.0) % Monocytes % (0.0-12.0) % Eosinophils % (0.00-5.0) % Basophils % (0.0-0.4) % Absolute Granulocytes (1.4-6.9) Basophils # (0-0.4) PT (9.4-12.5) SECONDS INR (0.8-3.0) APTT (25.1-36.5) SECONDS D-Dimer (215-500) ng/mL Sodium (137-145) mmol/L Potassium (3.5-5.1) mmol/L Chloride (98-107) mmol/L Carbon Dioxide (22-30) mmol/L Anion Gap (5-15) MEQ/L BUN (7-17) mg/dL Creatinine (0.52-1.04) mg/dL Estimated GFR ML/MIN Glucose (74-106) mg/dL Calcium (8.4-10.2) mg/dL Total Bilirubin (0.2-1.3) mg/dL AST (14-36) U/L ALT (0-35) U/L Alkaline Phosphatase (38-126) U/L Troponin I < 0.012 < 0.012 < 0.012 (0.000-0.034) ng/mL NT-Pro-B Natriuret Pep (0-1800) pg/mL Serum Total Protein (6.3-8.2) g/dL Albumin (3.5-5.0) g/dL TSH 3rd Generation (0.47-4.68) mIU/L 12/24/21 12/24/21 Range/Units 00:20 00:20 WBC 6.0 (4.0-10.5) K/mm3 RBC 4.70 (4.1-5.4) M/mm3 Hgb 13.7 (12.0-16.0) gm/dl Hct 42.5 (35-47) % MCV 90.4 (78-100) fl MCH 29.1 (26-32) pg MCHC 32.2 (32-36) g/dl RDW 14.2 H (11.5-14.0) % Plt Count 235 (150-450) K/mm3 MPV 10.3 (7.5-11.0) fl Gran % 53.2 (36.0-66.0) % Eos # (Auto) 0.21 (0-0.5) Absolute Lymphs (auto) 1.99 (1.0-4.6) Absolute Monos (auto) 0.59 (0.0-1.3) Lymphocytes % 33.0 (24.0-44.0) % Monocytes % 9.8 (0.0-12.0) % Eosinophils % 3.5 (0.00-5.0) % Basophils % 0.5 (0.0-0.4) % Absolute Granulocytes 3.21 (1.4-6.9) Basophils # 0.03 (0-0.4) PT (9.4-12.5) SECONDS INR (0.8-3.0) APTT (25.1-36.5) SECONDS D-Dimer (215-500) ng/mL Sodium 137 (137-145) mmol/L Potassium 4.0 (3.5-5.1) mmol/L Chloride 105 (98-107) mmol/L Carbon Dioxide 27 (22-30) mmol/L Anion Gap 9.2 (5-15) MEQ/L BUN 14 (7-17) mg/dL Creatinine 0.75 (0.52-1.04) mg/dL Estimated GFR > 60.0 ML/MIN Glucose 93 (74-106) mg/dL Calcium 9.2 (8.4-10.2) mg/dL Total Bilirubin 0.60 (0.2-1.3) mg/dL AST 26 (14-36) U/L ALT 13 (0-35) U/L Alkaline Phosphatase 69 (38-126) U/L Troponin I (0.000-0.034) ng/mL NT-Pro-B Natriuret Pep (0-1800) pg/mL Serum Total Protein 5.9 L (6.3-8.2) g/dL Albumin 3.4 L (3.5-5.0) g/dL TSH 3rd Generation (0.47-4.68) mIU/L - Radiology Exams Ordered Rad Exams-Entire Visit: Radiology Procedures Category Date Time Status CHEST 1 VIEW (PORTABLE) Stat Exams 12/23/21 12:01 Completed CHEST WITH CONTRAST [CT] Stat Exams 12/23/21 14:00 Completed - Procedures and Test Procedures and Tests throughout Hospitalization: Therapy Orders & Screens 12/23/21 18:30 RT Screen per Nursing Assess ONCE Comment: Protocol Order Physician Instructions: Greater than 3 points order RT Admission Screen Reason For Exam: Triggered on Admission Diagnosis: Chest pain rule out NV Diagnosis: Chest pain rule out NV Pneumonia: No Home O2: No Asthma: No CHF: No Home CPAP/BIPAP: Yes Home Nebs/MDI: Yes Total Points: 10 12/23/21 19:00 Respiratory MDI BID Comment: [facility] Diagnosis: Chest pain rule out NV 12/23/21 21:00 BiPap/CPAP ROUTINE Comment: HOME UNIT PER HOME SETTINGS Diagnosis: Chest pain rule out NV 12/24/21 07:00 Respiratory Therapy Assessment DAILY Comment: Diagnosis: Chest pain rule out NV - Discharge Disposition: Home, Self-Care Condition: Good Prescriptions: Continue Potassium Chloride 10 Meq Tab* [Klor Con 10 MEQ] 10 meq PO DAILY Montelukast Sodium [Singulair] 10 mg PO DAILY Carvedilol 12.5 mg [Coreg 12.5 mg] 1 tab PO BID Allopurinol 100 mg [Zyloprim 100 mg] 1 tab PO DAILY Levothyroxine Sodium 75 Mcg [Synthroid 75 Mcg] 37.5 mcg PO UD Lisinopril 10 mg [Zestril 10 MG] 1 tab PO DAILY Discontinued Levothyroxine Sodium 75 Mcg [Synthroid 75 Mcg] 75 mcg PO UD Follow up with: SIL LUX [Primary Care Provider] -
[2021-12-24 21:28] VITALS: O2SAT 96
== END 2021-12-24 14:50 | disposition home or self-care (01) ==
LOC: ED 11:25 → MED SURG 16:25
PROVIDERS: ADMIT Family Medicine; ATTEND Family Medicine
DX: R07.9 Chest pain, unspecified (principal); R00.2 Palpitations; I10 Essential (primary) hypertension; E03.9 Hypothyroidism, unspecified; R79.89 Other specified abnormal findings of blood chemistry; Z79.899 Other long term (current) drug therapy; Z86.16 Personal history of COVID-19
CPT/HCPCS: 36000; 36415; 71045; 71260; 80053; 83880; 84443; 84484; 85025; 85379; 85610; 85730; 93005; 93041; 93268; 94640; 94760; 96374; 99285; G0378; J1650; J2405; A9270-GY